=== PATIENT | female | born 1960 ===

== ENCOUNTER 2016-12-30 18:19 | Emergency (ER) | payer OTHER ==
[2016-12-30 18:20] VITALS: BMI 26.7
[2016-12-30 18:42] VITALS: BP 132/77; PULSE 79; RESP 18; TEMP 98.1; O2SAT 100
[2016-12-30] MEDS ORDERED: Sodium Chloride 0.9% 1,000 ML IV STA (20:07)
--- NOTE | 2016-12-30 20:44 | ED PDOC ---
HPI: Abdomen Time Seen by Provider: 12/30/16 19:31 Chief Complaint (Nursing): Abdominal Pain Chief Complaint (Provider): Abdominal Pain History Per: Patient History/Exam Limitations: no limitations Onset/Duration Of Symptoms: Days (5x), Intermittent Episodes Current Symptoms Are (Timing): Intermittent Episodes Severity: Moderate Associated Symptoms: Nausea, Vomiting (4x episodes). denies: Fever, Diarrhea, Chest Pain, Urinary Symptoms Additional Complaint(s): 56 year old female with a pertinent medical history of HTN and hypercholesterolemia presents to the ED with complaints of intermittent abdominal pain that started 5x days ago. She reports that the pain started 5x days ago, and she when to [facility] twice to be evaluated, and once to her PMD. At [facility] (2x days ago) , she had a CT scan which showed an ovarian cyst, which she was supposed to have an ultrasound for, but did not (patient doesn't know the reason for why she did not). She reports that her pain has escalated and she has ad no relief form the prescribed ibuprofen and zofran. She reports that she has vomited 4x times since the pain started. She denies having any other symptoms including fever, weight lost, shortness of breath, chest pain, headache, diarrhea, urinary symptoms, and abnormal vaginal bleeding or discharge. PMD: Martin Villarreal MD. Abnormal Vaginal Bleeding: No Past Medical History Reviewed: Historical Data, Nursing Documentation, Vital Signs Vital Signs: Last Vital Signs Temp 98.1 F 12/30/16 18:43 Pulse 79 12/30/16 18:43 Resp 18 12/30/16 18:43 BP 132/77 12/30/16 18:43 Pulse Ox 100 12/30/16 21:06 - Medical History PMH: HTN, Hypercholesterolemia - Surgical History Other surgeries: hysterectomy - Family History Family History: States: Unknown Family Hx - Social History Alcohol: None Drugs: Denies - Immunization History Hx Tetanus Toxoid Vaccination: No Hx Influenza Vaccination: No Hx Pneumococcal Vaccination: No - Home Medications Home Medications: Ambulatory Orders Medication Instructions Recorded Ibuprofen [Motrin Tab] 600 mg PO Q8 #30 tab 12/27/16 Ondansetron [Zofran Odt] 1 - 2 tab PO .Q4-6H PRN #20 odt 12/27/16 Losartan/Hydrochlorothiazide 1 tab PO DAILY 12/29/16 [Losartan Potassium-Hydrochlorothiazide 12.5 M] Simvastatin 20 mg PO DAILY 12/29/16 Naproxen [Naprosyn] 500 mg PO Q12 #14 tab 12/31/16 traMADol [Ultram] 50 mg PO Q6 PRN #16 tab 12/31/16 - Allergies Allergies/Adverse Reactions: Allergies Allergy/AdvReac Type Severity Reaction Status Date / Time No Known Allergies Allergy Verified 12/30/16 18:42 Review of Systems ROS Statement: Except As Marked, All Systems Reviewed And Found Negative Constitutional: Negative for: Fever Cardiovascular: Negative for: Chest Pain Respiratory: Negative for: Cough, Shortness of Breath Gastrointestinal: Positive for: Nausea, Vomiting, Abdominal Pain. Negative for : Diarrhea Genitourinary Female: Negative for: Dysuria, Hematuria, Vaginal Discharge, Vaginal Bleeding Neurological: Negative for: Headache Physical Exam - Reviewed Nursing Documentation Reviewed: Yes Vital Signs Reviewed: Yes - Physical Exam Appears: Positive for: Well, Non-toxic, Uncomfortable Head Exam: Positive for: ATRAUMATIC, NORMOCEPHALIC Skin: Positive for: Normal Color, Warm, Dry Eye Exam: Positive for: Normal appearance Cardiovascular/Chest: Positive for: Regular Rate, Rhythm Respiratory: Positive for: Normal Breath Sounds. Negative for: Respiratory Distress Gastrointestinal/Abdominal: Positive for: Tenderness (mild lower abdominal tenderness). Negative for: Mass, Guarding, Rebound Neurologic/Psych: Positive for: Alert, Oriented (3x) - Laboratory Results Result Diagrams: 12/30/16 21:25 12/30/16 21:25 - ECG O2 Sat by Pulse Oximetry: 100 (RA) Pulse Ox Interpretation: Normal Medical Decision Making Medical Decision Makin:31 Initial impression: 56 year old female with nonspecific abdominal pain, recently diagnosed with an ovarian cyst. Initial plan: * US pelvis/transvaginal * EKG * CMP * lipase * udip * CBC * IV NS 1,000ml: 1,000mls/hr * toradol 10mg IV * zofran 4mg IV * urinalysis * reevaluation 1:15 US showed small left ovarian cyst. Reported improvement in pain. Results explained. Patient referred to [facility]. Given Rx. Discussed results and plan with patient who expresses understanding. Counseling was provided regarding the diagnosis and prognosis. All questions answered and there is agreement with the plan to discharge home with instructions. Patient stable for discharge. Return if symptoms persist or worsen. Scribe Attestation: Documented by Corine Hamlin, acting as a scribe for Pedro Chen MD. Provider Scribe Attestation: All medical record entries made by the Scribe were at my direction and personally dictated by me. I have reviewed the chart and agree that the record accurately reflects my personal performance of the history, physical exam, medical decision making, and the department course for this patient. I have also personally directed, reviewed, and agree with the discharge instructions and disposition. Disposition - Clinical Impression Clinical Impression: Ovarian cyst - Patient ED Disposition Is Patient to be Admitted: No - Disposition Referrals: Radha Roper MD [Staff Provider] - Martin Villarreal MD [Primary Care Provider] - Disposition: Routine/Home Disposition Time: 01:15 Condition: STABLE Prescriptions: Naproxen [Naprosyn] 500 mg PO Q12 #14 tab traMADol [Ultram] 50 mg PO Q6 PRN #16 tab PRN Reason: abdominal pain Instructions: Ovarian Cyst (ED)
[2016-12-30 21:33] LABS: BASO % 0.4 % (0.0-2.0); EOS % 0.6 % (0.0-4.0); HEMATOCRIT 35.9 % (34.0-47.0); LYMPH # 1.6 K/uL (1.0-4.3); LYMPH % 25.1 % (20.0-40.0); MEAN CELL VOLUME 83.5 fl (81.0-99.0); MEAN CORPUSCULAR HGB CONC 32.3 g/dL (33.0-37.0); MONO # 0.5 K/uL (0.0-0.8); MONO % 8.7 % (0.0-10.0); NEUT % 65.2 % (50.0-75.0); RED CELL DISTRIBUTION WIDTH 14.6 % (11.5-14.5); WHITE BLOOD COUNT 6.2 K/uL (4.8-10.8)
[2016-12-30 21:46] LABS: ALB/GLOB RATIO 1.3 (1.0-2.1); ALKALINE PHOSPHATASE 97 U/L (38-126); ALT/SGPT 32 U/L (9-52); AST/SGOT 28 U/L (14-36); BILIRUBIN,TOTAL 0.5 mg/dl (0.2-1.3); BLOOD UREA NITROGEN 19 mg/dl (7-17); CALCIUM 8.9 mg/dL (8.4-10.2); CARBON DIOXIDE 28 mmol/L (22-30); CHLORIDE 100 mmol/L (98-107); GFR AFRICAN-AMERICAN > 60; GLUCOSE,RANDOM 96 mg/dL (65-105); LIPASE 47 U/L (23-300); POTASSIUM 3.2 MMOL/L (3.6-5.0); SODIUM 143 mmol/l (132-148); TOTAL PROTEIN 6.8 G/DL (6.3-8.2)
[2016-12-30 23:46] LABS: RBC URINE 3 /hpf (0-3); URINE BILIRUBIN NEGATIVE (NEGATIVE); URINE BLOOD NEGATIVE (NEGATIVE); URINE COLOR YELLOW (YELLOW); URINE GLUCOSE (UA) NEG (Normal); URINE KETONE NEGATIVE (NEGATIVE); URINE LEUKOCYTE ESTERASE NEG Leu/uL (Negative); URINE PROTEIN NEGATIVE (NEGATIVE); URINE UROBILINOGEN 0.2-1.0 mg/dL (0.2-1.0); WBC URINE 1 /hpf (0-5)
--- NOTE | 2016-12-31 08:50 | US ---
HISTORY: Abdominal pain; ov cyst on CT; COMPARISON: None available. TECHNIQUE: Transabdominal and transvaginal pelvic ultrasound was performed. FINDINGS: UTERUS: Surgically absent. RIGHT OVARY: Not visualized. LEFT OVARY: Measures 2.5 x 1.8 x 2.4 cm. No solid mass. Normal flow. There is a 1.8 x 1.6 x 1.8 cm simple cyst. FREE FLUID: No significant free fluid noted. OTHER FINDINGS: None. IMPRESSION: Status post hysterectomy. No adnexal mass or free fluid in the pelvis. 1.8 cm simple cyst in the left ovary. The right ovary is not visualized.
--- NOTE | 2016-12-31 19:10 | CARD ---
APPROVED REPORT EKG Measurement Heart [id number] [id number] [id number] <Conclusion> Normal sinus rhythm Minimal voltage criteria for LVH, may be normal variant Borderline ECG
== END 2016-12-31 01:09 | disposition home or self-care (01) ==
LOC: H.ER 18:19
DX: N83.202 Unspecified ovarian cyst, left side (principal); R10.9 Unspecified abdominal pain; E78.00 Pure hypercholesterolemia, unspecified; I10 Essential (primary) hypertension; Z90.710 Acquired absence of both cervix and uterus

== ENCOUNTER 2018-11-30 23:13 | Emergency (ER) | payer MEDICAID, OTHER ==
[2018-11-30 23:13] VITALS: BMI 26.7
[2018-11-30 23:30] VITALS: O2SAT 100
--- NOTE | 2018-11-30 23:57 | ED PDOC ---
HPI: Abdomen Time Seen by Provider: 11/30/18 23:32 Chief Complaint (Nursing): Abdominal Pain Chief Complaint (Provider): Abdominal Pain History Per: Patient History/Exam Limitations: no limitations Onset/Duration Of Symptoms: Days (3) Associated Symptoms: Back Pain. denies: Fever, Nausea, Vomiting, Diarrhea Additional Complaint(s): 58 y/o female with history of hypertension, ovarian cyst, hypercholesterolemia, GERD, and schizoaffective disorder presents to the ED complaining of abdominal pain. Patient also reports she has a yeast infection. Patient states pain is located in her lower abdomen radiates to her lower back. She denies nausea, vomiting, diarrhea, or fever. Past Medical History Reviewed: Historical Data, Nursing Documentation, Vital Signs Vital Signs: Last Vital Signs Temp 98.2 F 11/30/18 23:26 Pulse 88 11/30/18 23:26 Resp 16 11/30/18 23:26 BP 157/90 H 11/30/18 23:26 Pulse Ox 100 11/30/18 23:26 - Medical History PMH: GERD, HTN, Hypercholesterolemia Other PMH: ovarian cyst; schizoaffective disorder - Surgical History Other surgeries: Hysterectomy - Family History Family History: States: Unknown Family Hx - Social History Current smoker - smoking cessation education provided: No Alcohol: None Drugs: Denies - Immunization History Hx Tetanus Toxoid Vaccination: No Hx Influenza Vaccination: No Hx Pneumococcal Vaccination: No - Home Medications Home Medications: Ambulatory Orders Medication Instructions Recorded Losartan/Hydrochlorothiazide 1 tab PO DAILY 12/29/16 [Losartan Potassium-Hydrochlorothiazide 12.5 M] Simvastatin 20 mg PO DAILY 12/29/16 Fluconazole [Diflucan] 150 mg PO ONCE #2 tab 12/01/18 Naproxen [Naprosyn] 500 mg PO Q12 #14 tab 12/01/18 - Allergies Allergies/Adverse Reactions: Allergies Allergy/AdvReac Type Severity Reaction Status Date / Time No Known Allergies Allergy Verified 11/30/18 23:26 Review of Systems ROS Statement: Except As Marked, All Systems Reviewed And Found Negative Constitutional: Negative for: Fever Gastrointestinal: Positive for: Abdominal Pain. Negative for: Nausea, Vomiting, Diarrhea Musculoskeletal: Positive for: Back Pain Physical Exam - Reviewed Nursing Documentation Reviewed: Yes Vital Signs Reviewed: Yes - Physical Exam Appears: Positive for: Well, Non-toxic, No Acute Distress Head Exam: Positive for: ATRAUMATIC, NORMAL INSPECTION, NORMOCEPHALIC Skin: Positive for: Normal Color, Warm, DRY Eye Exam: Positive for: EOMI, Normal appearance, PERRL ENT: Positive for: Normal ENT Inspection Neck: Positive for: Normal, Painless ROM Cardiovascular/Chest: Positive for: Regular Rate, Rhythm. Negative for: Murmur Respiratory: Positive for: Normal Breath Sounds. Negative for: Respiratory Distress Gastrointestinal/Abdominal: Positive for: Tenderness (mild diffuse) Back: Positive for: Normal Inspection. Negative for: L CVA Tenderness, R CVA Tenderness, Vertebral Tenderness Extremity: Positive for: Normal ROM. Negative for: Pedal Edema, Deformity Neurologic/Psych: Positive for: Alert, Oriented. Negative for: Motor/Sensory Deficits - Laboratory Results Result Diagrams: 12/01/18 00:40 12/01/18 00:40 - ECG O2 Sat by Pulse Oximetry: 100 (RA) Pulse Ox Interpretation: Normal Medical Decision Making Medical Decision Making: Time: 23:48 Initial Impression: 58 y/o with abdominal pain Initial Plan: * Labs * US Transvaginal * US Abdomen * Toradol 15 mg 01:19 US Abdomen FINDINGS: LIVER: Within normal limits in size and echogenicity. No mass. GALLBLADDER: The gallbladder appears within normal limits. No gallbladder wall thickening or pericholecystic fluid. COMMON BILE DUCT: No dilation. 3 mm. PANCREAS: The visualized pancreas appears within normal limits. The distal pancreas is obscured by bowel gas. RIGHT KIDNEY: Unremarkable. Normal renal contours. No renal mass or calculus. No hydronephrosis. IMPRESSION: Unremarkable right upper quadrant ultrasound. 01:42 US Transvaginal Findings Uterus Patient is status post hysterectomy. There is no abnormal findings in the uterine fossa. Right ovary Not visualized. Left ovary Measures 3.0 x 1.9 x 2.3 cm. No solid mass. Normal flow. Cyst measuring 2.7 x 1.4 x 2.0, stable since prior study. Free fluid No significant free fluid noted. Other Findings None. Impression Status post hysterectomy. No abnormal findings in the uterine fossa. Right ovary not visualized. Left ovary cyst, stable since prior study. 01:45 Patient reports marked improvement of symptoms. Labs reviewed no clinically significant abnormalities. Patient will be discharged diagnosis is ovarian cyst. Scribe Attestation: Documented by Tavon Ash acting as a scribe for Pedro Chen MD. Provider Scribe Attestation: All medical record entries made by the Scribe were at my direction and personally dictated by me. I have reviewed the chart and agree that the record accurately reflects my personal performance of the history, physical exam, medical decision making, and the department course for this patient. I have also personally directed, reviewed, and agree with the discharge instructions and disposition. Disposition - Clinical Impression Clinical Impression: Ovarian cyst, Vaginal candidiasis - Patient ED Disposition Is Patient to be Admitted: No - Disposition [facility]errals: [facility] [Outside] Disposition: Routine/Home Disposition Time: 01:45 Condition: IMPROVED Additional Instructions: RAMIREZ BELTRE, thank you for letting us take care of you today. Your provider was Pedro Chen MD and you were treated for ABD PAIN. The [facility] medical care you received today was directed at your acute symptoms. If you were prescribed any medication, please fill it and take as directed. It may take several days for your symptoms to resolve. Return to the Emergency Department if your symptoms worsen, do not improve, or if you have any other problems. Please contact your doctor or call one of the physicians/clinics you have been referred to that are listed on the Patient Visit Information form that is included in your discharge packet. Bring any paperwork you were given at discharge with you along with any medications you are taking to your follow up visit. Our treatment cannot replace ongoing medical care by a primary care provider outside of the emergency department. Thank you for allowing the [facility] team to be part of your care today. If you had an X-Ray or CT scan: A Radiologist will review the ED reading if any change in treatment is needed we will contact you. If you had a blood, urine, or wound culture: It will take several days for the results, if any change in treatment is needed we will contact you. If you had an STI test: It will take 48 hours for the results. Please call after 1 week if you have not heard back. Prescriptions: Fluconazole [Diflucan] 150 mg PO ONCE #2 tab Naproxen [Naprosyn] 500 mg PO Q12 #14 tab Instructions: Vulvovaginal Yeast Infection, Ovarian Cysts Forms: [employer] (Macedonian)
[2018-12-01 00:52] LABS: BASO # 0.1 K/uL (0.0-0.2); BASO % 0.9 % (0.0-2.0); EOS # 0.2 K/uL (0.0-0.7); EOS % 2.3 % (0.0-4.0); HEMOGLOBIN 11.8 g/dL (12.0-16.0); LYMPH # 2.8 K/uL (1.0-4.3); LYMPH % 25.1 % (20.0-40.0); MEAN CELL VOLUME 83.6 fl (81.0-99.0); MEAN CORPUSCULAR HEMOGLOBIN 27.3 pg (27.0-31.0); MEAN CORPUSCULAR HGB CONC 32.7 g/dL (33.0-37.0); MEAN PLATELET VOLUME 7.7 fl (7.2-11.7); MONO # 0.7 K/uL (0.0-0.8); MONO % 6.7 % (0.0-10.0); NEUT # 7.1 K/uL (1.8-7.0); NRBC % 0.1 % (0.0-0.0); RBC 4.32 Mil/uL (3.80-5.20)
[2018-12-01 00:59] LABS: ALB/GLOB RATIO 1.4 (1.0-2.1)
[2018-12-01 01:00] LABS: ALBUMIN 4.2 g/dL (3.5-5.0); ALT/SGPT 46 U/L (9-52); AST/SGOT 33 U/L (14-36); BLOOD UREA NITROGEN 21 mg/dl (7-17); CALCIUM 9.4 mg/dL (8.4-10.2); GFR NON-AFRICAN AMERICAN > 60
[2018-12-01 01:12] LABS: PROTHROMBIN TIME 11.4 Seconds (9.8-13.1)
[2018-12-01 01:13] LABS: PARTIAL THROMBOPLASTIN TIME 37.5 Seconds (25.6-37.1)
[2018-12-01 02:11] VITALS: BP 141/82; PULSE 76; RESP 15; TEMP 98.1
--- NOTE | 2018-12-01 11:31 | US ---
Date of service: 11/30/2018 HISTORY: RUQ pain COMPARISON: None. TECHNIQUE: Grayscale imaging was performed. FINDINGS: LIVER: Measures 18.2 cm in length. There is diffuse increased echogenicity of the liver parenchyma. No mass. No intrahepatic bile duct dilatation. GALLBLADDER: There are no gallstones, wall thickening or pericholecystic fluid. The sonographic Frankel's sign is negative. COMMON BILE DUCT: Measures 3.0 mm. No stones. No dilatation. PANCREAS: Unremarkable as visualized. No mass. No ductal dilatation. RIGHT KIDNEY: Measures 10.1 cm in length. Normal echogenicity. No calculus, mass, or hydronephrosis. AORTA: No aneurysmal dilatation. IVC: Unremarkable. OTHER FINDINGS: None . IMPRESSION: No cholelithiasis or biliary dilatation. Mild hepatomegaly. Diffuse increased echogenicity in the liver may reflect hepatic steatosis however parenchymal infectious/ inflammatory etiologies cannot be entirely excluded. Clinical and laboratory correlation is advised.
--- NOTE | 2018-12-01 11:35 | US ---
Date of service: 12/01/2018 HISTORY: r/o torsion COMPARISON: 12/31/2016. TECHNIQUE: Transvaginal pelvic ultrasound was performed. FINDINGS: UTERUS: Surgically absent. RIGHT OVARY: Not visualized. LEFT OVARY: Measures 3.0 x 1.9 x 2.3 cm. No solid mass. Normal flow. There is little interval change in 2.7 x 1.4 x 2.0 cm simple cyst. FREE FLUID: No significant free fluid noted. OTHER FINDINGS: None. IMPRESSION: Status post hysterectomy. Little interval change in 2.7 cm simple cyst in the left ovary.
--- NOTE | 2018-12-03 18:48 | ED PDOC ---
ED Additional Note - Date & Time of Evaluation Date of Evaluation: 12/03/18 Time of Evaluation: 18:45 - Physician Additional Note Physician Additional Note: PA performing Radiology call backs ABdominal U/S, limited 11/30/18: FINDINGS: LIVER: Measures 18.2 cm in length. There is diffuse increased echogenicity of the liver parenchyma. No mass. No intrahepatic bile duct dilatation. GALLBLADDER: There are no gallstones, wall thickening or pericholecystic fluid. The sonographic Frankel's sign is negative. COMMON BILE DUCT: Measures 3.0 mm. No stones. No dilatation. PANCREAS: Unremarkable as visualized. No mass. No ductal dilatation. RIGHT KIDNEY: Measures 10.1 cm in length. Normal echogenicity. No calculus, mass, or hydronephrosis. AORTA: No aneurysmal dilatation. IVC: Unremarkable. OTHER FINDINGS: None . IMPRESSION: No cholelithiasis or biliary dilatation. Mild hepatomegaly. Diffuse increased echogenicity in the liver may reflect hepatic steatosis however parenchymal infectious/ inflammatory etiologies cannot be entirely e xcluded. Clinical and laboratory correlation is advised. I spoke with patient to inform her of U/S results and need for follow up with her primary care doctor for re-assessment and follow up. Pt stated understanding and will contact PMD Dr. Davila.
== END 2018-12-01 02:11 | disposition home or self-care (01) ==
LOC: H.ER 23:13
DX: B37.3 Candidiasis of vulva and vagina (principal); N83.202 Unspecified ovarian cyst, left side; E78.00 Pure hypercholesterolemia, unspecified; I10 Essential (primary) hypertension; K21.9 Gastro-esophageal reflux disease without esophagitis
CPT/HCPCS: 76705; 76830; 80053; 85025; 85610; 85730; 96374; 99284; J1885

== ENCOUNTER 2018-12-18 21:38 | Emergency (ER) | payer MEDICAID, OTHER ==
[2018-12-18 21:38] VITALS: BMI 26.7
[2018-12-18] MEDS ORDERED: Naproxen 500 MG TAB PO STA (22:05)
[2018-12-18] MEDS ORDERED: Naproxen 500 MG TAB PO ONE (22:18)
--- NOTE | 2018-12-18 22:22 | ED PDOC ---
HPI: Trauma/Fall - HPI Time Seen by Provider: 12/18/18 21:43 Chief Complaint (Nursing): Trauma Chief Complaint (Provider): Neck Pain, Right Knee Pain s/p Fall History Per: Patient History/Exam Limitations: no limitations Onset/Duration Of Symptoms: Hrs (since 5pm today) Location Of Injury: Right: Knee, Posterior: Neck Additional Complaint(s): Patient is a 58 year old female who presents to the ED for evaluation of acute neck pain and right knee pain s/p fall at 5pm. Patient reports she was cleaning the basement of a [employer] when the josephine switched from cement to wood, causing her to fall sustaining the injuries. 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 Patient denies any history of knee or neck injury/surgery. Patient states pain at both sites worsens with movement. Denies LOC, headache, dizziness, N/V/D, abdominal pain, chest pain, SOB/cough, other extremity pain, visual changes, back pain, numbness/weakness. PMD: Leonel Harper Past Medical History Reviewed: Historical Data, Vital Signs Vital Signs: Last Vital Signs Temp 97 F L 12/18/18 21:40 Pulse 93 H 12/18/18 21:40 Resp 16 12/18/18 21:40 BP 136/85 12/18/18 21:40 Pulse Ox 99 12/18/18 21:40 - Medical History PMH: GERD, HTN, Hypercholesterolemia - Surgical History Other surgeries: hysterectomy, left ankle ORIF - Family History Family History: States: Unknown Family Hx - Home Medications Home Medications: Ambulatory Orders Medication Instructions Recorded Losartan/Hydrochlorothiazide 1 tab PO DAILY 12/29/16 [Losartan Potassium-Hydrochlorothiazide 12.5 M] Simvastatin 20 mg PO DAILY 12/29/16 Fluconazole [Diflucan] 150 mg PO ONCE #2 tab 12/01/18 Naproxen [Naprosyn] 500 mg PO Q12 #14 tab 12/01/18 Acetaminophen [Acetaminophen 8 650 mg PO Q8 PRN #21 tablet.er 12/19/18 Hour] Meloxicam [Mobic] 15 mg PO DAILY PRN #10 tab 12/19/18 - Allergies Allergies/Adverse Reactions: Allergies Allergy/AdvReac Type Severity Reaction Status Date / Time No Known Allergies Allergy Verified 11/30/18 23:26 Review of Systems ROS Statement: Except As Marked, All Systems Reviewed And Found Negative Musculoskeletal: Positive for: Neck Pain, Other (right knee pain) Physical Exam - Reviewed Nursing Documentation Reviewed: Yes Vital Signs Reviewed: Yes - Physical Exam Comments: GENERALIZED APPEARANCE: Patient arrived AAOx3 in no acute distress; ambulatory with a steady gait. SKIN: Warm, dry; (-) cyanosis, (-) rash. HEAD: (-) scalp swelling, (-) scalp tenderness EYES: (-) conjunctival injection (-) hyphema (-) periorbital tenderness, erythema, or edema ENMT: Mucous membranes moist. Nasal bridge: (-) tenderness. (-) epistaxis. (-) facial bone tenderness. Ears: (-) hemotympanum. Airway patent: (-) stridor. FROM of mandible NECK: Trachea with (-) deviation, (+) midline cervical tenderness, (+) bilateral paracervical tenderness, (-) step-off, (-) limitation on ROM. CHEST AND RESPIRATORY: (-) chest wall tenderness, (-) ecchymosis, (-) abrasions, (-) crepitus, (-) subcutaneous emphysema; (-) rales, (-) rhonchi, (-) wheezes; breath sounds equal bilateral. Respirations even and nonlabored. HEART AND CARDIOVASCULAR: (-) irregularity ABDOMEN AND GI: Soft (-) distension (-) tenderness, (-) guarding, (-) rebound, (-) rigidity BACK: (-) midline vertebral tenderness, (-) paravertebral tenderness. PELVIS: (-) tenderness (-) hip tenderness, (-) pain with full ROM of hips bilaterally EXTREMITIES: (-) lower extremity shortening or rotation, (+) effusion of right knee with diffuse tenderness (+) decreased ROM secondary to pain (+) ecchymosis to medial aspect of right knee (-) instability on valgus or varus stress (-) anterior and posterior drawer sign (-) calf tenderness. Foot and ankle nontender with FROM. (+) palpable distal pulses. NEURO: Mental status as above. CN's: Pupils equal and reactive, (-) facial- droop. Strength in all extremities symmetric. Sensation: grossly intact. Cerebellar tests intact. (-) facial asymmetry . - ECG O2 Sat by Pulse Oximetry: 99 (RA) Pulse Ox Interpretation: Normal Medical Decision Making Medical Decision Makin Initial Impression: acute neck and knee pain s/p fall Plan: Tylenol 650mg PO Naproxen 500mg PO Knee XR 3 views Neck XR complete Re-evaluation 2349 EXAM: CR Cervical spine, 4 View. CLINICAL HISTORY: Neck pain fall COMPARISON: None provided. FINDINGS: BONES: No acute fracture or aggressive appearing osseous lesion. Posterior vertebral body alignment is within normal limits. Anterior hyperostotic spurring arises from the C3-C4-C5-C6 vertebrae. DISCS/DEGENERATIVE CHANGES: Disc interspace narrowing is seen at C6-7 compatible with degenerative disc disease. The remaining disc spaces are preserved. Oblique views demonstrate some right exit foramen encroachment at C4-5 and C5-6; and left exit foramen encroachment at C6-7. SOFT TISSUES: No prevertebral soft tissue swelling. The visualized lung apices are clear. IMPRESSION: 1. No acute cervical spine abnormality. 2. Evidence of degenerative disc disease at C6-7. 3. Anterior hyperostotic spurring arises from the C3-C7 vertebrae; most pronounced at C5-6. 4. Unilateral right exit foramen encroachment at C4-5 and C5-6 and unilateral left exit foramen encroachment at C6-7. Electronically signed on Dec 18, 2018 11:52:36 PM EDT by: Hakeem Ponce M.D., MBA Certified By ABR & CBCCT Fellowship Trained MRI and CT Specialist EXAM: CR right Knee, 4 View. CLINICAL HISTORY: Fall COMPARISON: None provided. FINDINGS: BONES: No acute fracture or aggressive appearing osseous lesion. JOINTS: No knee effusion. No dislocation. Advanced arthritic narrowing is seen within the medial compartment. Moderate arthritic narrowing is seen within the patellar-femoral space. Marginal osteophytic spurring arises from the medial and lateral femoral condyles, lateral tibial plateau. Posterior patellar spurring is present. These findings are compatible with primary osteoarthritis. Associated genu varus deformity is noted. SOFT TISSUES: The soft tissues are unremarkable. IMPRESSION: 1. No acute osseous abnormality evident on examination of the right knee. No acute fracture or dislocation. 2. Primary osteoarthritic changes; most pronounced within the medial compartment. 3. Associated genu varus deformity noted. Electronically signed on Dec 18, 2018 11:52:42 PM EDT by: Hakeem Ponce M.D., MBA Certified By ABR & CBCCT Fellowship Trained MRI and CT Specialist On re-evaluation, patient sleeping comfortably. When awakened by provider, patient reports improvement of symptoms. On exam, patient remains AAOx3, in no acute distress. Vitals stable. Lab/Diagnostic results d/w the patient in great detail. Diagnosis of acute knee and neck pain s/p fall d/w the patient. Based on history, exam and diagnostic results, plan will be for outpatient follow up. Patient instructed to follow-up with pmd / referral provided / the clinic in 1- 2 days without fail. Advised to take medication as prescribed. Return to the emergency room at any time for any new or worsening symptoms. Patient states she fully agrees with and understands discharge instructions. States that she a grees with the plan and disposition. Verbalized and repeated discharge instructions and plan. I have given the patient opportunity to ask any additional questions. Disposition - Clinical Impression Clinical Impression: Acute knee pain, Acute neck pain, Fall, Contusion - Patient ED Disposition Is Patient to be Admitted: No Counseled Patient/Family Regarding: Studies Performed, Diagnosis, Need For Followup, Rx Given - Disposition Referrals: Jann Harper MD [Staff Provider] - Roberta Wright MD [Staff Provider] - Disposition: Routine/Home Disposition Time: 23:55 Condition: STABLE Additional Instructions: The emergency medical care you received today was directed at your acute symptoms. If you were prescribed any medication, please fill it and take as directed. It may take several days for your symptoms to resolve. Return to the Emergency Department if your symptoms worsen, do not improve, or if you have any other problems. Please contact your doctor in 2 days for re-evaluation and follow up / or call one of the physicians/clinics you have been referred to that are listed on the Patient Visit Information form that is included in your discharge packet. Bring any paperwork you were given at discharge with you along with any medications you are taking to your follow up visit. Our treatment cannot replace ongoing m edical care by a primary care provider (PCP) outside of the emergency department. Prescriptions: Acetaminophen [Acetaminophen 8 Hour] 650 mg PO Q8 PRN #21 tablet.er PRN Reason: Pain, Moderate (4-7) Meloxicam [Mobic] 15 mg PO DAILY PRN #10 tab PRN Reason: Pain, Moderate (4-7) Instructions: Taking Care of Bruises, Neck Pain, Muscle and Bone Pain (DC), Generalized Neck Pain, Knee Pain (DC) Forms: [facility] ([facility]) Print Language: ROMANIAN - POA Present On Arrival: Falls Or Trauma
[2018-12-19 00:39] VITALS: BP 131/89; PULSE 85; RESP 18; TEMP 97.4
[2018-12-19 12:17] VITALS: O2SAT 99
--- NOTE | 2018-12-19 15:58 | RAD ---
Date of service: 12/18/2018 PROCEDURE: Cervical Spine Radiographs. HISTORY: Pain. COMPARISON: None available. TECHNIQUE: 3 views obtained. FINDINGS: BONES: Alignment maintained. No fracture. Dens Intact. DISC SPACES: There are advanced degenerative changes and multilevel moderate to mildly severe narrowing of the intervertebral disc is spaces. SOFT TISSUES: Normal. No prevertebral soft tissue swelling. OTHER FINDINGS: Large osteophyte formation noted at C5-C6. IMPRESSION: Severe degenerative changes.
--- NOTE | 2018-12-19 15:59 | RAD ---
Date of service: 12/18/2018 PROCEDURE: Right Knee Radiographs. HISTORY: s/p fall COMPARISON: None. FINDINGS: BONES: No evidence of acute fracture. JOINTS: Advanced osteoarthritic changes noted. JOINT EFFUSION: None. OTHER FINDINGS: There is genu varus deformity IMPRESSION: Advanced osteoarthritic changes associated with genu varus deformity.
== END 2018-12-19 00:38 | disposition home or self-care (01) ==
LOC: H.ER 21:38
DX: M25.561 Pain in right knee (principal); M54.2 Cervicalgia; W19.XXXA Unspecified fall, initial encounter; Y92.89 Other specified places as the place of occurrence of the external cause

== ENCOUNTER 2019-01-09 16:20 | Emergency (ER) | payer OTHER ==
[2019-01-09 16:20] VITALS: BMI 26.7
[2019-01-09] MEDS ORDERED: Lidocaine 5% Patch TD STA (17:39)
--- NOTE | 2019-01-09 18:13 | ED PDOC ---
HPI: Chest Pain Time Seen by Provider: 01/09/19 17:09 Chief Complaint (Nursing): Rib Injury Chief Complaint (Provider): Rib Injury History Per: Patient History/Exam Limitations: no limitations Onset/Duration Of Symptoms: Days Current Symptoms Are (Timing): Still Present Additional Complaint(s): 58 y/o female with a PMHx of HTN, Hypercholesterolemia, Schizoaffective Dis order, Depression and GERD presents to the ED for evaluation of left anterior chest wall pain since December 18 when she slipped and fell face down while cleaning the basement of a [employer]. Patient reports of presenting here at that time and had XRs performed that were negative. However, patient states pain has persisted and increased and became more severe yesterday. Patient additionally complaining of pain to the right knee and intermittent right sided chest pain associated with mild shortness of breath. Patient notes pain worsens with movement, touch and deep breaths. Patient reports of taking anti-inflammatory medications with no relief of symptoms. Otherwise, patient denies fever and foca l weakness. PMD: no provider Past Medical History Reviewed: Historical Data, Nursing Documentation, Vital Signs Vital Signs: Last Vital Signs Temp 98.3 F 01/09/19 16:45 Pulse 89 01/09/19 16:45 Resp 20 01/09/19 16:45 BP 143/79 01/09/19 16:45 Pulse Ox 98 01/09/19 16:45 - Medical History PMH: Depression, GERD, HTN, Hypercholesterolemia, Schizophrenia - Surgical History Other surgeries: left ankle surgery and hysterectomy - Family History Family History: States: Diabetes, Hypertension, Other Other Family History: hypercholesterolemia - Social History Current smoker - smoking cessation education provided: No Alcohol: None - Immunization History Hx Tetanus Toxoid Vaccination: No Hx Influenza Vaccination: No Hx Pneumococcal Vaccination: No - Home Medications Home Medications: Ambulatory Orders Medication Instructions Recorded Losartan/Hydrochlorothiazide 1 tab PO DAILY 12/29/16 [Losartan Potassium-Hydrochlorothiazide 12.5 M] Simvastatin 20 mg PO DAILY 12/29/16 Fluconazole [Diflucan] 150 mg PO ONCE #2 tab 12/01/18 Naproxen [Naprosyn] 500 mg PO Q12 #14 tab 12/01/18 Acetaminophen [Acetaminophen 8 650 mg PO Q8 PRN #21 tablet.er 12/19/18 Hour] Meloxicam [Mobic] 15 mg PO DAILY PRN #10 tab 12/19/18 Diclofenac Epolamine [Flector] 1 each TD DAILY PRN #20 patch.td12 01/09/19 Lidocaine 5% [Lidoderm] 1 ea TD DAILY PRN #20 patch 01/09/19 - Allergies Allergies/Adverse Reactions: Allergies Allergy/AdvReac Type Severity Reaction Status Date / Time No Known Allergies Allergy Verified 11/30/18 23:26 Review of Systems ROS Statement: Except As Marked, All Systems Reviewed And Found Negative (as per HPI) Constitutional: Negative for: Fever Cardiovascular: Positive for: Chest Pain, Other (chest wall pain) Respiratory: Positive for: Shortness of Breath Musculoskeletal: Positive for: Leg Pain Neurological: Negative for: Weakness Physical Exam - Reviewed Nursing Documentation Reviewed: Yes Vital Signs Reviewed: Yes - Physical Exam Appears: Positive for: In Acute Distress (mild painful distress) Head Exam: Positive for: ATRAUMATIC, NORMOCEPHALIC Skin: Positive for: Warm, Dry Eye Exam: Positive for: EOMI, PERRL ENT: Negative for: Pharyngeal Erythema, Tonsillar Exudate Neck: Positive for: Painless ROM, Supple Cardiovascular/Chest: Negative for: Chest Non Tender (Tenderness to palpation of the left anterior chest wall at the bra stu), Other (crepidous or step off) Respiratory: Positive for: Normal Breath Sounds (Lungs clear to auscultation bilaterally). Negative for: Wheezing, Respiratory Distress Gastrointestinal/Abdominal: Positive for: Soft, Tenderness (some LLQ abdominal tenderness to palpation). Negative for: Mass, Distended, Guarding, Rebound Back: Positive for: Normal Inspection. Negative for: Decreased ROM Extremity: Positive for: Other (lower leg trace edema and bilateral knee edema) Lymphatic: Negative for: Adenopathy Neurological/Psych: Positive for: Awake, Alert. Negative for: Motor/Sensory Deficits - Laboratory Results Result Diagrams: 01/09/19 18:10 01/09/19 18:10 Lab Results: no emergently significant lab abnormalities - ECG ECG: Positive for: Interpreted By Me ECG Rhythm: Positive for: Normal QRS, Normal ST Segment, Sinus Rhythm O2 Sat by Pulse Oximetry: 98 (RA) Pulse Ox Interpretation: Normal Medical Decision Making Medical Decision Making: Time: 172 Impression: Chest wall pain Differentials include but not limited to rib fracture or strain, pulmonary contusion, pulmonary emoblism, gastritis and pancreatitis Plan: -- Type and Screen -- EKG -- CMP -- Lipase -- Troponin I -- CBC with Differentials -- D Dimer -- PTT -- Prothrombin Time -- CXR Two Views -- Lidoderm 1 ea TD -- Toradol 15 mg IVP -- Tylenol 975 mg PO -- IV Insertion -- Review of previous charts demonstrate patient reported of neck and knee pain but denies chest pain. XRs from last visit demonstrate degenerative joint disease. Name: RAMIREZ BELTRE Exam Date: Jan 09, 2019 9:49:23 PM EDT Modality Type: CT Description: CT - CHEST, ABDOMEN & PELVIS Gender: F Laterality: Not applicable : 62 Referring Physician: Sarina Rodriguez EXAM: CT Chest with Intravenous Contrast. CT Abdomen and Pelvis with Intravenous Contrast CLINICAL HISTORY: Left anterior chest wall and LUQ pa TECHNIQUE: Axial computed tomography images of the chest, abdomen and pelvis with intravenous contrast. 943.25 mGy-cm CONTRAST: With; 95ml Omnipaque 300 COMPARISON: CR\SD\WI - CHEST TWO VIEWS (PA/LAT) - 01/09/2019 05:52 PM EDT FINDINGS: CHEST: LUNGS: The remainder of the lungs is free of consolidation, pleural effusion or pn eumothorax. PLEURAL SPACES: No evidence of pneumothorax. No pleural effusion. HEART: No cardiomegaly. No significant pericardial effusion. LYMPH NODES: No lymphadenopathy. ABDOMEN AND PELVIS: LIVER: There is mild diffuse fatty infiltration of liver. GALLBLADDER AND BILE DUCTS: The gallbladder appears within normal limits. No radioopaque gallstones are seen. No biliary ductal dilatation is evident. PANCREAS: The pancreas is slightly atrophic and slightly fatty replaced. SPLEEN: Unremarkable. ADRENAL GLANDS: Unremarkable. There is a 2.5 cm left adrenal nodule which is incompletely characterized on this postcontrast study. Please correlate clinically and if indicated this could be further evaluated with adrenal CT or adrenal MRI simply noncontrast CT. KIDNEYS, URETERS, AND BLADDER: Unremarkable. No hydronephrosis or nephrolithiasis. No uterteral or bladder calc brandee. STOMACH AND BOWEL: Stomach is decompressed. The colon demonstrates some degree of constipation. No evidence for bowel obstruction or inflammation. APPENDIX: No evidence of acute appendicitis on CT examination. PERITONEUM: No pneumoperitoneum or ascites. LYMPH NODES: No lymphadenopathy is evident. VASCULATURE: There is minimal atherosclerotic calcification of the abdominal aorta and branches. BONES: Moderate multilevel degenerative spine changes are noted throughout the t horacolumbar spine. MISCELLANEOUS: Minimal biapical scarring. Bladder is decompressed. The uterus is atrophic or absent. IMPRESSION: 1. Minimal biapical scarring. 2. No acute pathology in the thorax. 3. There is mild diffuse fatty infiltration of liver. 4. The pancreas is slightly atrophic and slightly fatty replaced. 5. There is a 2.5 cm left adrenal nodule which is incompletely characterized on this postcontrast study. Please correlate clinically and if indicated this could be further evaluated with adrenal CT or adrenal MRI simply noncontrast CT. 6. The colon demonstrates some degree of constipation. 7. No acute pathology identified in the abdomen or pelvis. 8. Additional, incidental findings as above. Electronically signed on Jan 09, 2019 10:42:42 PM EDT by: Hakeem Ponce M.D., MBA Certified By ABR & CBCCT Fellowship Trained MRI and CT Specialist Scribe Attestation: Documented by Juanpablo Novak, acting as a scribe Jeffrey Rodriguez MD. Provider Scribe Attestation: All medical record entries made by the Scribe were at my direction and personally dictated by me. I have reviewed the chart and agree that the record accurately reflects my personal performance of the history, physical exam, medical decision making, and the department course for this patient. I have also personally directed, reviewed, and agree with the discharge instructions and disposition. Disposition - Clinical Impression Clinical Impression: Arthritis of knee, Bruised ribs Counseled Patient/Family Regarding: Studies Performed, Diagnosis, Need For Followup, Rx Given - Disposition Disposition: Routine/Home Disposition Time: 22:59 Condition: STABLE Additional Instructions: FOLLOWUP WITH YOUR DOCTOR TOMORROW FOR REFERRAL FOR PHYSICAL THERAPY CONTINUE ALL YOUR MEDICATIONS USUAL AND MINIMIZE STRENUOUS ACTIVITY Prescriptions: Diclofenac Epolamine [Flector] 1 each TD DAILY PRN #20 patch.td12 PRN Reason: PAIN Lidocaine 5% [Lidoderm] 1 ea TD DAILY PRN #20 patch PRN Reason: PAIN Instructions: Bruised Rib (DC), Osteoarthritis (DC)
[2019-01-09 18:25] LABS: BASO % 0.4 % (0.0-2.0); EOS # 0.1 K/uL (0.0-0.7); HEMOGLOBIN 11.3 g/dL (12.0-16.0); LYMPH # 2.4 K/uL (1.0-4.3); MEAN CELL VOLUME 82.9 fl (81.0-99.0); MEAN CORPUSCULAR HEMOGLOBIN 26.9 pg (27.0-31.0); MEAN CORPUSCULAR HGB CONC 32.5 g/dL (33.0-37.0); MONO # 0.6 K/uL (0.0-0.8); MONO % 6.9 % (0.0-10.0); NEUT # 5.7 K/uL (1.8-7.0); NEUT % 64.7 % (50.0-75.0); NRBC % 0.1 % (0.0-0.0); RBC 4.21 Mil/uL (3.80-5.20); WHITE BLOOD COUNT 8.9 K/uL (4.8-10.8)
[2019-01-09 18:29] LABS: PROTHROMBIN TIME 10.9 Seconds (9.8-13.1)
[2019-01-09 18:32] LABS: PARTIAL THROMBOPLASTIN TIME 36.6 Seconds (25.6-37.1)
[2019-01-09 18:53] LABS: ALB/GLOB RATIO 1.4 (1.0-2.1); ALT/SGPT 26 U/L (9-52); AST/SGOT 21 U/L (14-36); BLOOD UREA NITROGEN 23 mg/dl (7-17); CALCIUM 9.2 mg/dL (8.4-10.2); GFR NON-AFRICAN AMERICAN > 60; LIPASE 142 U/L (23-300)
[2019-01-09] MEDS ORDERED: Lidocaine 5% Patch TD ONE (19:05)
[2019-01-09 19:10] LABS: D DIMER < 200 ng/mlDDU (0-230)
[2019-01-09] MEDS ORDERED: Iohexol 300 100 ML IJ ONE (21:44)
[2019-01-09] MEDS ORDERED: Sodium Chloride 0.9% 50 ML IV ONE (21:44)
[2019-01-09 23:43] VITALS: BP 132/78; PULSE 75; RESP 18; O2SAT 99
[2019-01-10 00:54] VITALS: TEMP 98.7
--- NOTE | 2019-01-10 09:33 | RAD ---
Date of service: 01/09/2019 HISTORY: LEFT sided chest pain COMPARISON: No prior. TECHNIQUE: Chest PA and lateral views FINDINGS: LUNGS: No active pulmonary disease. PLEURA: No significant pleural effusion identified. No pneumothorax apparent. CARDIOVASCULAR: No aortic atherosclerotic calcification present. Normal cardiac size. No pulmonary vascular congestion. OSSEOUS STRUCTURES: Multilevel thoracic spondylosis appears advanced. VISUALIZED UPPER ABDOMEN: Normal. OTHER FINDINGS: None. IMPRESSION: No acute cardiopulmonary disease appreciated.
--- NOTE | 2019-01-10 11:44 | CT ---
Date of service: 01/09/2019 PROCEDURE: CT Chest, Abdomen and Pelvis with intravenous contrast HISTORY: LEFT anterior chest wall and LUQ pain s/p trauma COMPARISON: 11/30/2018. Abdominal ultrasound. TECHNIQUE: IV dose administered: 95 cc Omnipaque 300. Radiation dose: Total exam DLP = 943.25 mGy-cm. This CT exam was performed using one or more of the following dose reduction techniques: Automated exposure control, adjustment of the mA and/or kV according to patient size, and/or use of iterative reconstruction technique. FINDINGS: CT CHEST WITH CONTRAST: LUNGS: Clear. No nodule, mass or consolidation. MEDIASTINUM: Unremarkable. Normal caliber aorta and pulmonary arterial trunk. No aortic dissection. Normal size heart. LYMPH NODES: Unremarkable. PLEURA: Unremarkable. No pneumothorax. No pleural fluid. BONES: Unremarkable. OTHER FINDINGS: None. CT ABDOMEN AND PELVIS: LIVER: Hepatic steatosis. No focal masses. No intrahepatic bile duct dilatation or perihepatic ascites. GALLBLADDER AND BILE DUCTS: Unremarkable. PANCREAS: Unremarkable. No gross lesion or ductal dilatation. SPLEEN: Unremarkable. ADRENALS: Indeterminate left adrenal mass mean Hounsfield unit values 31. The mass measures 1.4 x 2.4 cm. Right adrenal gland: Unremarkable. No mass. KIDNEYS AND URETERS: Unremarkable. No hydronephrosis. No solid mass. Incidental finding(s): Sub cm cyst midpole region left kidney. VASCULATURE: No aortic atherosclerotic calcification or mural plaque present. Unremarkable. No aortic aneurysm. BOWEL: Constipation without fecal impaction or obstruction. APPENDIX: A normal appendix is visualized in it's entirety. PERITONEUM: Unremarkable. No free fluid. No free air. LYMPH NODES: Unremarkable. No enlarged lymph nodes. BLADDER: Unremarkable. REPRODUCTIVE: Unremarkable. BONES: No acute fracture. OTHER FINDINGS: None. IMPRESSION: No significant or acute findings to account for/ related to the clinical presentation. Left adrenal mass well-circumscribed, incompletely characterized. Findings likely benign. Additional benign and/or incidental findings described above. Concordant results (preliminary interpretation) provided by [employer]. Procedure Completed: 21:53. Preliminary Report: Interpreted and electronically signed: 22:42. Final Interpretation: 11:40. January 10, 2019.
--- NOTE | 2019-01-10 21:12 | CARD ---
APPROVED REPORT Date of service: 01/09/2019 EKG Measurement Heart [id number] [id number] <Conclusion> Normal sinus rhythm Minimal voltage criteria for LVH, may be normal variant Borderline ECG
== END 2019-01-09 23:45 | disposition home or self-care (01) ==
LOC: H.ER 16:20
DX: Z90.710 Acquired absence of both cervix and uterus (principal); K76.0 Fatty (change of) liver, not elsewhere classified; K59.00 Constipation, unspecified; I10 Essential (primary) hypertension; Z86.59 Personal history of other mental and behavioral disorders; Z79.899 Other long term (current) drug therapy; W01.0XXA Fall on same level from slipping, tripping and stumbling without subsequent striking against object, initial encounter
CPT/HCPCS: 71046; 71260; 74177; 80053; 83690; 84484; 85025; 85378; 85610; 85730; 86850; 86900; 93005; 96374; 99284; J1885; Q9967